=== PATIENT | male | born 1950 | race Caucasian/White ===

== ENCOUNTER 2018-07-28 16:30 | Emergency (ER) | payer BC ==
[2018-07-28] MEDS ORDERED: Sodium Chloride 0.9% 10 ML Syringe FLUSH PRN (17:07)
[2018-07-28] MEDS ORDERED: cefTRIAXone 2 GM Vial IV ONE (17:17)
--- NOTE | 2018-07-28 18:16 | EDM.PDOC ---
ED HPI GENERAL MEDICAL PROBLEM - General Chief Complaint: Lower Extremity Injury/Pain Stated Complaint: KNEE PAIN Time Seen by Provider: 07/28/18 16:51 Source of Information: Reports: Patient, RN Notes Reviewed - History of Present Illness INITIAL COMMENTS - FREE TEXT/NARRATIVE: 67-year-old male comes in with left knee pain. He states this started about 4-5 days ago. He was seen at a [place] ED 4 days ago and diagnosed with gout. At that time did show normal white blood count but did show an elevated uric acid. He has been taking occasional ibuprofen, was not started on any other formal treatment. He states the knee has not gotten better, the pain today may be somewhat worse. His been erythema over the anterior knee for the past 3 or 4 days. He has had no fever or chills. No known injury to the knee. He eats that he did have a biopsy of his right index finger at a dermatology clinic about a week ago. He states they're actually was "pus" that came out from the biopsy sites when that was done. He states the dermatology clinic has called him and actually the major finding was fungal infection /inflammation of his finger and hand. He has no other open wounds or sores. He's never had gout previously in his life. Left Knee Pain Score (Numeric/FACES): 2 - Related Data Allergies Allergy/AdvReac Type Severity Reaction Status Date / Time IV Contrast Allergy Rash Uncoded 07/28/18 16:47 Home Meds: Home Meds Clopidogrel [Plavix] 1 tab PO DAILY 07/24/18 [History] Lisinopril 10 mg PO DAILY 07/24/18 [History] atorvaSTATin [Lipitor] 80 mg PO DAILY 07/24/18 [History] Aspirin [Adult Low Dose Aspirin EC] 81 mg PO DAILY 07/28/18 [History] Cephalexin [Keflex] 500 mg PO QID #40 capsule 07/28/18 [Rx] Doxycycline [Vibramycin] 100 mg PO BID #20 tab 07/28/18 [Rx] Metoprolol Succinate [Toprol XL] 25 mg PO DAILY 07/28/18 [History] Past Medical History Cardiovascular History: Reports: High Cholesterol, Hypertension Gastrointestinal History: Reports: Diverticulosis - Past Surgical History Cardiovascular Surgical History: Reports: Carotid Stents GI Surgical History: Reports: Other (See Below) Other GI Surgeries/Procedures: colon resection Social & Family History - Tobacco Use Smoking Status *Q: Never Smoker Second Hand Smoke Exposure: No - Caffeine Use Caffeine Use: Reports: Coffee - Recreational Drug Use Recreational Drug Use: No Review of Systems - Review of Systems Review Of Systems: See Below Constitutional: Denies: Chills (Occasional mild), Fever Mouth/Throat: Reports: No Symptoms Respiratory: Denies: Shortness of Breath Cardiovascular: Denies: Chest Pain Musculoskeletal: Reports: Joint Pain (He does have pain with motion of the left knee primarily anterior aspect of the). Denies: Joint Swelling Skin: Reports: Erythema (Anterior aspect left knee) ED EXAM, GENERAL - Physical Exam Exam: See Below Head: Atraumatic. No: Facial Swelling Neck: Supple Respiratory/Chest: No Respiratory Distress, Lungs Clear Cardiovascular: Regular Rate, Rhythm Extremities: Redness (There is moderate erythema, very mild warmth over the anterior aspect of the left knee. The remainder of knee is without warmth or erythema), Other (Mild pain with flexion and extension but the pain is limited to the anterior aspect of his knee). No: Joint Swelling (The knee joint is not swollen, there is no visible or palpable effusion) Neurological: Alert, Oriented, No Motor/Sensory Deficits Skin Exam: Warm, Dry, Other (No other skin lesions, quite extensive hand dermatitis both hands.) Course - Vital Signs Last Recorded V/S: Last Vital Signs Temp 98.8 F 07/28/18 16:39 Pulse 76 07/28/18 16:39 Resp 16 07/28/18 16:39 BP 154/83 H 07/28/18 16:39 Pulse Ox 96 07/28/18 16:39 - Orders/Labs/Meds Orders: Active Orders 24 hr Category Date Time Status Peripheral IV Care [RC] . DIRECTED Care 07/28/18 17:07 Active Sodium Chloride 0.9% [Saline Flush] Med 07/28/18 17:07 Active 10 ml FLUSH ASDIRECTED PRN Peripheral IV Insertion Adult [OM.PC] Stat Oth 07/28/18 17:07 Ordered Medication Orders Sodium Chloride (Saline Flush) 10 ml FLUSH ASDIRECTED PRN PRN Reason: Keep Vein Open Last Admin: 07/28/18 17:15 Dose: 10 ml Labs: Laboratory Tests 07/28/18 Range/Units 17:07 WBC 8.71 (4.23-9.07) K/mm3 RBC 5.13 (4.63-6.08) M/mm3 Hgb 15.8 (13.7-17.5) gm/L Hct 47.5 (40.1-51.0) % MCV 92.6 H (79.0-92.2) fl MCH 30.8 (25.7-32.2) pg MCHC 33.3 (32.2-35.5) g/dl RDW Std Deviation 42.4 (35.1-43.9) fL Plt Count 209 (163-337) K/mm3 MPV 10.2 (9.4-12.3) fl Neut % (Auto) 60.3 (34.0-67.9) % Lymph % (Auto) 25.9 (21.8-53.1) % [place] % (Auto) 11.5 (5.3-12.2) % Eos % (Auto) 1.5 (0.8-7.0) Baso % (Auto) 0.3 (0.1-1.2) % Neut # (Auto) 5.25 (1.78-5.38) K/mm3 Lymph # (Auto) 2.26 (1.32-3.57) K/mm3 [place] # (Auto) 1.00 H (0.30-0.82) K/mm3 Eos # (Auto) 0.13 (0.04-0.54) K/mm3 Baso # (Auto) 0.03 (0.01-0.08) K/mm3 Meds: Medications Generic Name Dose Route Start Last Admin Trade Name Freq PRN Reason Stop Dose Admin Sodium Chloride 10 ml 07/28/18 17:07 07/28/18 17:15 Saline Flush FLUSH 10 ml ASDIRECTED PRN Administration Keep Vein Open Discontinued Medications Generic Name Dose Route Start Last Admin Trade Name Freq PRN Reason Stop Dose Admin Ceftriaxone Sodium 2 gm 07/28/18 17:17 07/28/18 17:29 Rocephin IV 07/28/18 17:18 2 gm ONETIME ONE Administration - Re-Assessments/Exams Free Text/Narrative Re-Assessment/Exam: 07/28/18 18:17 White blood count is come back at 8700, 60 segs 26 lymphocytes. I do not see that the knee needs to be tapped at this time, clinically this is superfiscial cellulitits of the anterior knee. rocephin 2 grams IV has been ordered. Will plan to treat with dual antibiotic coverage, cephalexin and doxycyline. Discharge instr. as documented. Departure - Departure Time of Disposition: 18:33 Disposition: Home, Self-Care 01 Condition: Fair Clinical Impression: Cellulitis Qualifiers: Site of cellulitis: extremity Site of cellulitis of extremity: lower extremity Laterality: left Qualified Code(s): L03.116 - Cellulitis of left lower limb - Discharge Information Prescriptions: Cephalexin [Keflex] 500 mg PO QID #40 capsule Doxycycline [Vibramycin] 100 mg PO BID #20 tab Referrals: Radha Law PA-C [Primary Care Provider] - Forms: ED Department Discharge Additional Instructions: Rest and elevate leg and knee as much as possible until pain and erythema resolving, you have been given Rocephin 2 g IV while here in the ED today. Start cephalexin antibiotic this evening and take 500 mg 4 times daily for 10 days until gone, doxycycline also to be started this evening and take twice daily for 10 days or until gone. The prescriptions have been sent electronically to [facility]. Return to ED where you are at during your upcoming vacation if the swelling becomes more widespread involving the medial and lateral part severe knee as well as the top part that is currently affected or if you start running fever of more than 100.5 at last for more than an hour or 2. - My Orders Last 24 Hours: My Active Orders 07/28/18 17:07 Peripheral IV Care [RC] . DIRECTED Sodium Chloride 0.9% [Saline Flush] 10 ml FLUSH ASDIRECTED PRN Peripheral IV Insertion Adult [OM.PC] Stat - Assessment/Plan Last 24 Hours: My Active Orders 07/28/18 17:07 Peripheral IV Care [RC] . DIRECTED Sodium Chloride 0.9% [Saline Flush] 10 ml FLUSH ASDIRECTED PRN Peripheral IV Insertion Adult [OM.PC] Stat
== END 2018-07-28 18:48 | disposition home or self-care (01) ==
LOC: JD.ED 16:30
DX: L03.116 Cellulitis of left lower limb (principal); I10 Essential (primary) hypertension; Z79.82 Long term (current) use of aspirin; Z79.899 Other long term (current) drug therapy; Z91.041 Radiographic dye allergy status
CPT/HCPCS: 36415; 85025; 96374; 99283; J0696; 99284

== ENCOUNTER 2019-01-02 11:05 | Emergency (ER) | payer BC ==
--- NOTE | 2019-01-02 12:08 | EDM.PDOC ---
ED HPI GENERAL MEDICAL PROBLEM - General Chief Complaint: Syncope Stated Complaint: [facility] Time Seen by Provider: 01/02/19 11:09 Source of Information: Reports: Patient, EMS History Limitations: Reports: No Limitations - History of Present Illness INITIAL COMMENTS - FREE TEXT/NARRATIVE: The patient presents by [facility] for a syncopal episode. He had a blood draw done. He says they took many vials of blood. He got lightheaded and passed out. He says this has happened before. He did not feel right before he had the blood draw. He is getting worked up for some kidney issues. He is feeling better now. He did not want to come to the ER and he does not want any more blood drawn or an IV. He has no fever, chills, cough, congestion , runny nose, abdominal pain, nausea or vomiting. He had an AK before and he had stents before. Onset: Sudden Duration: Minutes: Severity: Moderate Improves with: Reports: None Worsens with: Reports: None Associated Symptoms: Reports: No Other Symptoms - Related Data Allergies Allergy/AdvReac Type Severity Reaction Status Date / Time IV Contrast Allergy Rash Uncoded 01/02/19 11:16 Home Meds: Home Meds Clopidogrel [Plavix] 75 tab PO DAILY 07/24/18 [History] Lisinopril 10 mg PO DAILY 07/24/18 [History] atorvaSTATin [Lipitor] 80 mg PO DAILY 07/24/18 [History] Metoprolol Succinate [Toprol XL] 25 mg PO DAILY 07/28/18 [History] Clobetasol Propionate [Temovate 0.05% Oint] 1 applic TOP ASDIRECTED 01/02/19 [ History] Past Medical History Cardiovascular History: Reports: High Cholesterol, Hypertension Gastrointestinal History: Reports: Diverticulosis - Past Surgical History Cardiovascular Surgical History: Reports: Carotid Stents GI Surgical History: Reports: Other (See Below) Other GI Surgeries/Procedures: colon resection Social & Family History - Tobacco Use Smoking Status *Q: Never Smoker - Caffeine Use Caffeine Use: Reports: None - Recreational Drug Use Recreational Drug Use: No ED ROS GENERAL - Review of Systems Review Of Systems: See Below Constitutional: Reports: No Symptoms HEENT: Reports: No Symptoms Respiratory: Reports: No Symptoms Cardiovascular: Reports: Syncope. Denies: Chest Pain Endocrine: Reports: No Symptoms GI/Abdominal: Reports: No Symptoms : Reports: No Symptoms Musculoskeletal: Reports: No Symptoms - Physical Exam Exam: See Below Exam Limited By: No Limitations General Appearance: Alert, No Apparent Distress Ears: Normal External Exam Nose: Normal Inspection Head Exam: Atraumatic, Normocephalic Neck: Normal Inspection Respiratory/Chest: No Respiratory Distress, Lungs Clear, Normal Breath Sounds Cardiovascular: Regular Rate, Rhythm, No Edema, No Murmur GI/Abdominal: Soft, Non-Tender, No Organomegaly, No Mass Neuro Exam (Abbreviated): Alert, Oriented, No Motor/Sensory Deficits EKG INTERPRETATION EKG Date: 01/02/19 Time: 11:28 Rhythm: NSR Rate (Beats/Min): 64 [place]: Normal P-Wave: Present QRS: Normal ST-T: Normal QT: Normal EKG Interpretation Comments: Q waves in the anterior leads Course - Vital Signs Last Recorded V/S: Last Vital Signs Temp 97.9 F 01/02/19 11:14 Pulse 67 01/02/19 11:14 Resp 16 01/02/19 11:14 BP 92/58 L 01/02/19 11:14 Pulse Ox 94 L 01/02/19 11:14 - Orders/Labs/Meds Orders: Active Orders 24 hr Category Date Time Status EKG Documentation Completion [RC] ASDIRECTED Care 01/02/19 11:14 Active EKG 12 Lead [EK] Stat Ther 01/02/19 11:14 Ordered - Re-Assessments/Exams Free Text/Narrative Re-Assessment/Exam: 01/02/19 12:09 The patient did not want any labs done or an IV. He just wanted to rest. He did agree to an EKG. I do not see any problems with the EKG. He feels better and his BP is better. It was 92 systolic when he came in and it is now 140 systolic. Departure - Departure Time of Disposition: 12:10 Disposition: Home, Self-Care 01 Condition: Good Clinical Impression: Syncope Qualifiers: Syncope type: vasovagal syncope Qualified Code(s): R55 - Syncope and collapse - Discharge Information *PRESCRIPTION DRUG MONITORING PROGRAM REVIEWED*: No *COPY OF PRESCRIPTION DRUG MONITORING REPORT IN PATIENT LEELA: No Additional Instructions: Go home and rest. Please return if you are worse. - My Orders Last 24 Hours: My Active Orders 01/02/19 11:14 EKG Documentation Completion [RC] ASDIRECTED EKG 12 Lead [EK] Stat - Assessment/Plan Last 24 Hours: My Active Orders 01/02/19 11:14 EKG Documentation Completion [RC] ASDIRECTED EKG 12 Lead [EK] Stat
== END 2019-01-02 12:26 | disposition home or self-care (01) ==
LOC: JD.ED 11:05
DX: R55 Syncope and collapse (principal); I10 Essential (primary) hypertension; E78.00 Pure hypercholesterolemia, unspecified; Z91.041 Radiographic dye allergy status; Z79.02 Long term (current) use of antithrombotics/antiplatelets; Z79.899 Other long term (current) drug therapy
CPT/HCPCS: 93005; 93010; 99283; 99284-25

== ENCOUNTER 2020-09-25 12:24 | Emergency (ER) | payer BC ==
[2020-09-25] MEDS ORDERED: HYDROmorphone 0.5 MG/0.5 ML Syringe IVPUSH ONE (12:51)
[2020-09-25] MEDS ORDERED: Metoclopramide 10 MG/2 ML SDV IVPUSH ONE (12:51)
[2020-09-25] MEDS ORDERED: Acetaminophen 325 MG Tab PO ONE (12:52)
[2020-09-25] MEDS ORDERED: Dextrose 5%-0.9% NaCl 1,000 ML IV SCH (13:00)
--- NOTE | 2020-09-25 13:00 | EDM.PDOC ---
ED HPI GENERAL MEDICAL PROBLEM - General Chief Complaint: General Stated Complaint: poss covid headache vomiting fever body aches Time Seen by Provider: 09/25/20 12:40 Source of Information: Reports: Patient History Limitations: Reports: No Limitations - History of Present Illness INITIAL COMMENTS - FREE TEXT/NARRATIVE: 70-year-old male presents to the ED for evaluation of generalized myalgia headache nausea and vomiting mild diarrhea mildly paroxysmal cough and loss of appetite. All signs and symptoms of COVID-19 illness. Patient started feeling unwell last , September 19. He was in [place] shortly after starting to feel unwell. He has not been able to keep down any of his medicines for the last 3 days. Feels lightheaded dizzy and weak. Intermittent diaphoresis and sweats with chills. He is a never smoker. He has had 1 myocardial infarction. He has had 3 stents placed in his heart to the first time in 1 last time which was 8 years ago. He remains on Plavix daily. Has hypertension. Onset: Gradual Onset Date: 09/19/20 Duration: Day(s):, Constant, Getting Worse Location: Reports: Chest (Complete loss of appetite with intermittent nausea vomiting and mild diarrhea but not for the last 2 days. Mild paroxysmal minimally productive cough without hemoptysis. Believes there might be a slight color to the sputum.), Generalized (Neurolyse myalgia with associated headache), Other Quality: Reports: Ache (And relies myalgia neck low back thighs) Severity: Moderate Improves with: Reports: None Worsens with: Reports: Movement Context: Reports: Other. Denies: Activity, Exercise, Lifting, Sick Contact, Trauma Associated Symptoms: Reports: Cough, cough w sputum (Wound sputum production whitish in color), Loss of Appetite, Malaise, Nausea/Vomiting, Shortness of Breath, Other (Did have diarrhea up until 2 days ago when he has had no further diarrhea.). Denies: Confusion (Continuous occurrence over a week ago.), Chest Pain Treatments [employer]: Reports: Other (see below) (He took Denise-Broad Top 2 days ago but nothing since for fever relief. Has not kept down any of his medications for the last 3 days.) - Related Data Allergies Allergy/AdvReac Type Severity Reaction Status Date / Time IV Contrast Allergy Rash Uncoded 09/25/20 12:45 Home Meds: Home Meds Clopidogrel [Plavix] 75 tab PO DAILY 07/24/18 [History] Lisinopril 10 mg PO DAILY 07/24/18 [History] RX: atorvaSTATin [Lipitor] 80 mg PO DAILY 07/24/18 [History] RX: Metoprolol Succinate [Toprol XL] 25 mg PO DAILY 07/28/18 [History] Clobetasol Propionate [Temovate 0.05% Oint] 1 applic TOP ASDIRECTED 01/02/19 [History] Ondansetron [Zofran] 4 mg BUCCAL Q6H PRN #8 tab 09/25/20 [Rx] RX: dexAMETHasone [Decadron] 6 mg PO BID #12 tablet 09/25/20 [Rx] Past Medical History Cardiovascular History: Reports: CAD, High Cholesterol, Hypertension, HI (Myocardial infarction with the first placement of stents.), Stents (2 stents were placed the first times many years ago and then 1 stent was placed 8 years ago) Other Cardiovascular History: 3 stents Gastrointestinal History: Reports: Diverticulosis Genitourinary History: Reports: Renal Disease - Past Surgical History Cardiovascular Surgical History: Reports: Carotid Stents GI Surgical History: Reports: Other (See Below) Other GI Surgeries/Procedures: colon resection Social & Family History - Tobacco Use Tobacco Use Status *Q: Never Tobacco User - Caffeine Use Caffeine Use: Reports: None - Recreational Drug Use Recreational Drug Use: No ED ROS GENERAL - Review of Systems Review Of Systems: See Below Constitutional: Reports: Fever, Chills, Malaise, Weakness, Fatigue, Decreased Appetite HEENT: Reports: Glasses Respiratory: Reports: Shortness of Breath, Cough, Sputum. Denies: Wheezing (Reading primarily), Pleuritic Chest Pain, Hemoptysis (Minimal sputum production he thinks is a slight yellow color to it.) Cardiovascular: Reports: Blood Pressure Problem, Dyspnea on Exertion, Lightheadedness. Denies: Chest Pain, Claudication, Edema, Orthopnea Endocrine: Reports: Fatigue GI/Abdominal: Reports: Anorexia, Diarrhea, Decreased Appetite, Nausea (Diarrhea up until 2 days ago.), Vomiting : Reports: Frequency, Other ([place] x2) Musculoskeletal: Reports: Back Pain, Joint Pain Skin: Reports: Bruising Neurological: Reports: Dizziness, Headache, Difficulty Walking (Due to weakness in his lower extremities), Weakness. Denies: Confusion, Syncope Psychiatric: Reports: No Symptoms Hematologic/Lymphatic: Reports: No Symptoms Immunologic: Reports: No Symptoms ED EXAM, GENERAL - Physical Exam Exam: See Below Exam Limited By: No Limitations General Appearance: Alert, WD/WN, Moderate Distress, Other (Is ill. Does feel very warm palpation although nurses recorded temperature is 36.6. Heart rate was 95. Respiratory was 20 with O2 sats of 95% room air BP 165 /110.) Eye Exam: Bilateral Eye: Normal Inspection (No blepharal pallor or scleral icterus.), PERRL Throat/Mouth: Normal Oropharynx (1 is dry and coated. Oropharynx is otherwise normal.), Other Head: Atraumatic, Normocephalic Neck: Normal Inspection, Supple, Non-Tender, Full Range of Motion. No: Lymphadenopathy (L), Lymphadenopathy (R) Respiratory/Chest: Lungs Clear, Normal Breath Sounds (Mild tachypnea.), No Accessory Muscle Use, Respiratory Distress. No: Crackles, Rales, Rhonchi, Wheezing Cardiovascular: Normal Peripheral Pulses, Regular Rate, Rhythm, No Edema, No Gallop, No Murmur, No Rub Peripheral Pulses: 2+: Carotid (L), Carotid (R), Posterior Tibial (L), Posterior Tibial (R), Dorsalis Pedis (L), Dorsalis Pedis (R) GI/Abdominal: Normal Bowel Sounds, Soft, Non-Tender, No Organomegaly, No Abnormal Bruit, No Mass Back Exam: Normal Inspection, Full Range of Motion. No: CVA Tenderness (L), CVA Tenderness (R) Extremities: Normal Inspection, Normal Range of Motion, Non-Tender, No Pedal Edema Neurological: Alert, Oriented, CN II-XII Intact, Normal Cognition Psychiatric: Normal Affect, Normal Mood Skin Exam: Warm, Dry, Intact, Normal Color, No Rash #1 Interpretation EKG Date: 09/25/20 Time: 13:47 Rhythm: NSR Rate (Beats/Min): 97 [place]: Normal P-Wave: Enlarged QRS: Other (There are Q waves in leads II, III and aVF less than 25% of the QRS complex and are likely insignificant. Give some consideration of possible old inferior wall myocardial infarction since he is got 3 coronary artery stents.) ST-T: Normal QT: Prolonged (Moderately prolonged) EKG Interpretation Comments: Abnormal ECG Course - Vital Signs Last Recorded V/S: Last Vital Signs Temp 36.5 C 09/25/20 16:27 Pulse 7 L 09/25/20 16:27 Resp 18 09/25/20 16:27 BP 142/74 H 09/25/20 16:27 Pulse Ox 93 L 09/25/20 16:27 - Orders/Labs/Meds Orders: Active Orders 24 hr Category Date Time Status EKG Documentation Completion [RC] STAT Care 09/25/20 12:53 Active Vital Signs [RC] Q15M Care 09/25/20 15:04 Active BLOOD CULTURE [MREF] Stat Lab 09/25/20 13:26 Received BLOOD CULTURE [MREF] Stat Lab 09/25/20 13:26 Received Dextrose 5%-0.9% NaCl [Dextrose 5%-Normal Saline] 1,000 Med 09/25/20 13:00 Active ml IV ASDIRECTED EPINEPHrine [Adrenalin] Med 09/25/20 15:03 Active 0.3 mg IM ONETIME PRN Famotidine [Pepcid] Med 09/25/20 15:03 Active 20 mg IVPUSH ONETIME PRN Sodium Chloride 0.9% [Saline Flush] Med 09/25/20 15:15 Active 30 ml FLUSH ASDIRECTED diphenhydrAMINE [Benadryl] Med 09/25/20 15:03 Active 50 mg IVPUSH ONETIME PRN methylPREDNISolone Sod Succ [Solu-MEDROL] Med 09/25/20 15:03 Active 125 mg IVPUSH ONETIME PRN Blood Culture x2 Reflex Set [OM.PC] Stat Oth 09/25/20 12:53 Ordered Medication Orders Diphenhydramine HCl (Diphenhydramine 50 Mg/Ml Sdv) 50 mg IVPUSH ONETIME PRN PRN Reason: hypersensitivity reaction Epinephrine HCl (Epinephrine 1 Mg/Ml Sdv) 0.3 mg IM ONETIME PRN PRN Reason: hypersensitivity reaction Famotidine (Famotidine 20 Mg/2 Ml Sdv) 20 mg IVPUSH ONETIME PRN PRN Reason: hypersensitivity reaction Dextrose/Sodium Chloride (Dextrose 5%-Normal Saline) 1,000 mls @ 500 mls/hr IV ASDIRECTED MARY Last Admin: 09/25/20 13:17 Dose: 500 mls/hr Documented by: MITCHELLTCON Methylprednisolone Sodium Succinate (Methylprednisolone Sodium Succinate 125 Mg/2 Ml Sdv) 125 mg IVPUSH ONETIME PRN PRN Reason: hypersensitivity reaction Sodium Chloride (Sodium Chloride 0.9% 10 Ml Syringe) 30 ml FLUSH ASDIRECTED [facility] Labs: Laboratory Tests 09/25/20 09/25/20 09/25/20 Range/Units 12:35 12:35 12:35 WBC 6.73 (4.23-9.07) K/mm3 RBC 5.58 (4.63-6.08) M/mm3 Hgb 17.5 D (13.7-17.5) gm/dl Hct 51.6 H (40.1-51.0) % MCV 92.5 H (79.0-92.2) fl MCH 31.4 (25.7-32.2) pg MCHC 33.9 (32.2-35.5) g/dl RDW Std Deviation 42.2 (35.1-43.9) fL Plt Count 148 L (163-337) K/mm3 MPV 10.9 (9.4-12.3) fl Neutrophils % (Manual) 62 H (40-60) % Band Neutrophils % 6 (0-10) % Lymphocytes % (Manual) 26 (20-40) % Atypical Lymphs % 0 % Monocytes % (Manual) 6 (2-10) % Eosinophils % (Manual) 0 L (0.8-7.0) % Basophils % (Manual) 0 L (0.2-1.2) Platelet Estimate Adequate RBC Morph Comment Normal PT (9.7-12.0) SECONDS INR APTT (21.7-31.4) SECONDS D-Dimer, Quantitative (0.19-0.50) mg/L Sodium 141 (136-145) mEq/L Potassium 4.1 (3.5-5.1) mEq/L Chloride 105 (98-107) mEq/L Carbon Dioxide 22 (21-32) mEq/L Anion Gap 18.1 H (5-15) BUN 25 H (7-18) mg/dL Creatinine 2.2 H (0.7-1.3) mg/dL Est Cr Clr Drug Dosing 33.18 mL/min Estimated GFR (MDRD) 30 (>60) mL/min BUN/Creatinine Ratio 11.4 L (14-18) Glucose 133 H (70-99) mg/dL Calcium 8.9 (8.5-10.1) mg/dL Magnesium 1.7 L (1.8-2.4) mg/dL Total Bilirubin 0.6 (0.2-1.0) mg/dL AST 23 (15-37) U/L ALT 54 (16-63) U/L Alkaline Phosphatase 133 H (46-116) U/L Lactate Dehydrogenase 239 H (85-227) U/L CK-MB (CK-2) 0.6 (0-3.6) ng/ml Troponin I < 0.017 (0.00-0.056) ng/mL C-Reactive Protein 2.4 H* (<1.0) mg/dL NT-Pro-B Natriuret Pep 290 H (0-125) pg/mL Total Protein 7.8 (6.4-8.2) g/dl Albumin 4.0 (3.4-5.0) g/dl Globulin 3.8 gm/dL Albumin/Globulin Ratio 1.1 (1-2) Urine Color (Yellow) Urine Appearance (Clear) Urine pH (5.0-8.0) Ur Specific [place] (1.005-1.030) Urine Protein (Negative) Urine Glucose (UA) (Negative) Urine Ketones (Negative) Urine Occult Blood (Negative) Urine Nitrite (Negative) Urine Bilirubin (Negative) Urine Urobilinogen (0.2-1.0) Ur Leukocyte Esterase (Negative) Urine RBC (0-5) /hpf Urine WBC (0-5) /hpf Ur Epithelial Cells (0-5) /hpf Urine Bacteria (FEW) /hpf Urine Mucus (FEW) /hpf SARS-CoV-2 RNA (JERALD) (NEGATIVE) 09/25/20 09/25/20 09/25/20 Range/Units 12:35 13:04 13:40 WBC (4.23-9.07) K/mm3 RBC (4.63-6.08) M/mm3 Hgb (13.7-17.5) gm/dl Hct (40.1-51.0) % MCV (79.0-92.2) fl MCH (25.7-32.2) pg MCHC (32.2-35.5) g/dl RDW Std Deviation (35.1-43.9) fL Plt Count (163-337) K/mm3 MPV (9.4-12.3) fl Neutrophils % (Manual) (40-60) % Band Neutrophils % (0-10) % Lymphocytes % (Manual) (20-40) % Atypical Lymphs % % Monocytes % (Manual) (2-10) % Eosinophils % (Manual) (0.8-7.0) % Basophils % (Manual) (0.2-1.2) Platelet Estimate RBC Morph Comment PT 10.9 (9.7-12.0) SECONDS INR 1.02 APTT 28.8 (21.7-31.4) SECONDS D-Dimer, Quantitative < 0.19 L (0.19-0.50) mg/L Sodium (136-145) mEq/L Potassium (3.5-5.1) mEq/L Chloride (98-107) mEq/L Carbon Dioxide (21-32) mEq/L Anion Gap (5-15) BUN (7-18) mg/dL Creatinine (0.7-1.3) mg/dL Est Cr Clr Drug Dosing mL/min Estimated GFR (MDRD) (>60) mL/min BUN/Creatinine Ratio (14-18) Glucose (70-99) mg/dL Calcium (8.5-10.1) mg/dL Magnesium (1.8-2.4) mg/dL Total Bilirubin (0.2-1.0) mg/dL AST (15-37) U/L ALT (16-63) U/L Alkaline Phosphatase (46-116) U/L Lactate Dehydrogenase (85-227) U/L CK-MB (CK-2) (0-3.6) ng/ml Troponin I (0.00-0.056) ng/mL C-Reactive Protein (<1.0) mg/dL NT-Pro-B Natriuret Pep (0-125) pg/mL Total Protein (6.4-8.2) g/dl Albumin (3.4-5.0) g/dl Globulin gm/dL Albumin/Globulin Ratio (1-2) Urine Color Yellow (Yellow) Urine Appearance Clear (Clear) Urine pH 6.0 (5.0-8.0) Ur Specific [place] > or = 1.030 (1.005-1.030) Urine Protein 3+ H (Negative) Urine Glucose (UA) Negative (Negative) Urine Ketones Negative (Negative) Urine Occult Blood Trace-intact H (Negative) Urine Nitrite Negative (Negative) Urine Bilirubin Negative (Negative) Urine Urobilinogen 0.2 (0.2-1.0) Ur Leukocyte Esterase Negative (Negative) Urine RBC Not seen (0-5) /hpf Urine WBC 0-5 (0-5) /hpf Ur Epithelial Cells Not seen (0-5) /hpf Urine Bacteria Not seen (FEW) /hpf Urine Mucus Not seen (FEW) /hpf SARS-CoV-2 RNA (JERALD) Positive H (NEGATIVE) Meds: Medications Generic Name Dose Route Start Last Admin Trade Name Freq PRN Reason Stop Dose Admin Diphenhydramine HCl 50 mg 09/25/20 15:03 Diphenhydramine 50 Mg/Ml Sdv IVPUSH ONETIME PRN hypersensitivity reaction Epinephrine HCl 0.3 mg 09/25/20 15:03 Epinephrine 1 Mg/Ml Sdv IM ONETIME PRN hypersensitivity reaction Famotidine 20 mg 09/25/20 15:03 Famotidine 20 Mg/2 Ml Sdv IVPUSH ONETIME PRN hypersensitivity reaction Dextrose/Sodium Chloride 1,000 mls @ 500 mls/hr 09/25/20 13:00 09/25/20 13:17 Dextrose 5%-Normal Saline IV 500 mls/hr ASDIRECTED MARY Administration Methylprednisolone Sodium Succinate 125 mg 09/25/20 15:03 Methylprednisolone Sodium Succinate 125 Mg/2 Ml Sdv IVPUSH ONETIME PRN hypersensitivity reaction Sodium Chloride 30 ml 09/25/20 15:15 Sodium Chloride 0.9% 10 Ml Syringe FLUSH ASDIRECTED MARY Discontinued Medications Generic Name Dose Route Start Last Admin Trade Name Freq PRN Reason Stop Dose Admin Acetaminophen 975 mg 09/25/20 12:52 09/25/20 13:13 Acetaminophen 325 Mg Tab PO 09/25/20 12:53 975 mg ONETIME ONE Administration Dexamethasone 6 mg 09/25/20 15:04 09/25/20 15:19 Dexamethasone 10 Mg/Ml Sdv IVPUSH 09/25/20 15:05 6 mg ONETIME ONE Administration Hydromorphone HCl 0.5 mg 09/25/20 12:51 09/25/20 13:16 Hydromorphone 0.5 Mg/0.5 Ml Syringe IVPUSH 09/25/20 12:52 0.5 mg ONETIME ONE Administration CASIRIVIMAB/IMDEVIMAB 10 ml/ 110 mls @ 220 mls/hr 09/25/20 15:03 09/25/20 15:43 Sodium Chloride IV 09/25/20 15:32 220 mls/hr ONETIME ONE Administration Metoclopramide HCl 10 mg 09/25/20 12:51 09/25/20 13:14 Metoclopramide 10 Mg/2 Ml Sdv IVPUSH 09/25/20 12:52 10 mg ONETIME ONE Administration - Radiology Interpretation Free Text/Narrative:: 70-year-old male presents to the ED for evaluation of generalized myalgia headache intermittent fever and chills associate with a paroxysmal minimally productive cough. A complete loss of appetite with nausea and vomiting and some diarrhea 2 days ago but nothing since. Clinically has all the signs and symptoms of COVID-19 illness. He recently traveled to [place]. Started to feel ill last , September 19 and has continued to feel unwell since. He has not received his COVID-19 vaccination. - Re-Assessments/Exams Free Text/Narrative Re-Assessment/Exam: 09/25/20 14:00 White count is 6.73 with differential pending. Hemoglobin is elevated at 17.5 with hematocrit of 51.6 indicating a degree of hemoconcentration. Platelet count low normal at 148,000. PT is 10.9 with an INR of 1.02 and a PTT of 28.8. D-dimer is less than 0.19. Sodium 141 with a potassium of 4.1. Chloride 105 with a bicarb of 22. Anion gap is elevated at 18.1. BUN is 25 with a creatinine elevated at 2.2 and a GFR of 30 i.e. stage IIIb renal insufficiency. Glucose is 133 calcium 8.9 magnesium slightly low at 1.7. Liver function is normal other than slightly elevated alkaline phosphatase at 133. LDH is elevated at 239. CK-MB fraction is 0.6 with a troponin I of less than 0.017 C-reactive protein 2.4 BNP slightly elevated at 290 total protein is 7.8 with an albumin fraction of 4.0 urinalysis shows 3+ proteinuria and trace of occult blood. Leukocyte Estrace is negative. Micro is pending 09/25/20 14:00 chest x-ray reveals prominence of the pulmonary arteries. There is no definitive pulmonary infiltrate and cardiac silhouette is normal as is the mediastinum. Slight degenerative changes are appreciated scattered within the spine. Blood pressure is come down to 142/92. 09/25/20 14:29 she reports nausea is improved. He wants to try some Pedialyte or dilute Gatorade and this will certainly will be offered to him. 09/25/20 15:03 COVID-19 screen is negative. Urinalysis showed 3+ proteinuria and trace of occult blood but no signs of infection. BNP is 290. C-reactive protein was 2.4 he is a candidate for Regeneron. Infusion and he is excepted this form of medication intravenously. Blood pressure is currently 142/82. He will be given a dose of dexamethasone 6 mg IV as well while he is in the department.Differential on the white count came back at 62% neutrophils and 6% bands cells. 09/25/20 16:39 patient completed Regeneron transfusion about 40 minutes ago and is feeling markedly improved primarily I believe from a IV fluid replacement therapy and control of fever. He will be discharged home with a pulse oximeter from the emergency department. He will return if his levels stay below 90 and 88%. Dexamethasone will be used 6 mg twice daily for 6 days. Departure - Departure Time of Disposition: 16:39 Disposition: Home, Self-Care 01 Condition: Fair Clinical Impression: COVID-19 determined by clinical diagnostic criteria - Discharge Information *PRESCRIPTION DRUG MONITORING PROGRAM REVIEWED*: Not Applicable *COPY OF PRESCRIPTION DRUG MONITORING REPORT IN PATIENT LEELA: Not Applicable Prescriptions: RX: dexAMETHasone [Decadron] 6 mg PO BID #12 tablet Ondansetron [Zofran] 4 mg BUCCAL Q6H PRN #8 tab PRN Reason: nausea or vomiting Instructions: COVID-19 Frequently Asked Questions, COVID-19 Vaccine Information, COVID-19: How to Protect Yourself and Others - CDC, COVID-19: Quarantine vs. Isolation - CDC, Prevent the Spread of COVID-19 if You Are Sick - CDC Referrals: Radha Law PA-C [Primary Care Provider] - Forms: ED Department Discharge Additional Instructions: Evaluation in the emergency room today in regards to diagnosis of COVID-19 illness. Your oxygen levels are staying 92 to 94% on room air but will go down with walking and on exertion. Your chest x-ray was negative for any signs of Covid or viral pneumonia. You were treated with a liter of IV fluids for dehydration identified in your lab work. You were a candidate for monoclonal antibody therapy and you received a combination of Regeneron and another antiviral medication to provide immediate antibodies against the COVID-19 illness in the hopes of being able to keep you out of the hospital. You were also started on dexamethasone or steroid 6 mg was given intravenously while in the emergency room. You should take a second dose in the form of the tablet at bedtime tonight with little food in your stomach. Then it is to be taken twice daily for another 5-1/2 days with breakfast and supper. I have also written a prescription for nausea may use Zofran 4 mg under the tongue every 4-6 hours as necessary for relief of nausea so that she can keep down fluids and eat a little bit. Appetite will improve with the steroids. You will need to continue Tylenol 650 mg every 4 hours as necessary for relief of fever and/or chills and body aches and headaches. Because you are on Plavix you cannot use Motrin or Aleve as they have a high propensity to cause you to bleed. You would need to return to the emergency room if you start to feel more short of breath. Ideally you should use your pulse oximeter least 4 times daily . As long as you are oxygen level stays above 88 you are doing okay. The worst part of the illness is day 8-11 which is currently where you are at we believe day 8. You need to quarantine for another 5 days to prevent spread of the virus to others particularly family members. You should consider vaccination in approximately 3 months time. Follow- up with personal physician anytime after 7 days from now if any other problems occur. Sepsis Event Note (ED) - Evaluation Sepsis Screening Result: No Definite Risk - Focused Exam Vital Signs: Vital Signs Temp Pulse Resp BP Pulse Ox 09/25/20 16:27 36.5 C 7 L 18 142/74 H 93 L 09/25/20 16:16 66 18 148/80 H 91 L 09/25/20 16:04 80 18 149/82 H 94 L 09/25/20 15:49 78 18 148/82 H 95 09/25/20 15:34 75 18 150/81 H 94 L 09/25/20 15:19 85 18 146/80 H 93 L 09/25/20 15:04 36.4 C 95 18 142/82 H 92 L 09/25/20 12:39 36.6 C 95 20 165/110 H 95 - My Orders Last 24 Hours: My Active Orders 09/25/20 12:53 EKG Documentation Completion [RC] STAT Blood Culture x2 Reflex Set [OM.PC] Stat 09/25/20 13:00 Dextrose 5%-0.9% NaCl [Dextrose 5%-Normal Saline] 1,000 ml IV ASDIRECTED 09/25/20 13:26 BLOOD CULTURE [MREF] Stat BLOOD CULTURE [MREF] Stat 09/25/20 15:03 EPINEPHrine [Adrenalin] 0.3 mg IM ONETIME PRN Famotidine [Pepcid] 20 mg IVPUSH ONETIME PRN diphenhydrAMINE [Benadryl] 50 mg IVPUSH ONETIME PRN methylPREDNISolone Sod Succ [Solu-MEDROL] 125 mg IVPUSH ONETIME PRN 09/25/20 15:04 Vital Signs [RC] Q15M 09/25/20 15:15 Sodium Chloride 0.9% [Saline Flush] 30 ml FLUSH ASDIRECTED - Assessment/Plan Last 24 Hours: My Active Orders 09/25/20 12:53 EKG Documentation Completion [RC] STAT Blood Culture x2 Reflex Set [OM.PC] Stat 09/25/20 13:00 Dextrose 5%-0.9% NaCl [Dextrose 5%-Normal Saline] 1,000 ml IV ASDIRECTED 09/25/20 13:26 BLOOD CULTURE [MREF] Stat BLOOD CULTURE [MREF] Stat 09/25/20 15:03 EPINEPHrine [Adrenalin] 0.3 mg IM ONETIME PRN Famotidine [Pepcid] 20 mg IVPUSH ONETIME PRN diphenhydrAMINE [Benadryl] 50 mg IVPUSH ONETIME PRN methylPREDNISolone Sod Succ [Solu-MEDROL] 125 mg IVPUSH ONETIME PRN 09/25/20 15:04 Vital Signs [RC] Q15M 09/25/20 15:15 Sodium Chloride 0.9% [Saline Flush] 30 ml FLUSH ASDIRECTED
--- NOTE | 2020-09-25 13:54 | CR ---
Chest: Portable view of the chest was obtained. Comparison: No prior chest x-rays available. Heart size and mediastinum are within normal limits. Lungs are clear with no acute parenchymal change. Slight degenerative change is scattered within the spine. Impression: 1. Nothing acute is seen on portable chest x-ray. Diagnostic code #1
[2020-09-25] MEDS ORDERED: Famotidine 20 MG/2 ML SDV IVPUSH PRN (15:03)
[2020-09-25] MEDS ORDERED: methylPREDNISolone Sodium Succinate 125 MG/2 ML SDV IVPUSH PRN (15:03)
[2020-09-25] MEDS ORDERED: EPINEPHrine 1 MG/ML SDV IM PRN (15:03)
[2020-09-25] MEDS ORDERED: diphenhydrAMINE 50 MG/ML SDV IVPUSH PRN (15:03)
[2020-09-25] MEDS ORDERED: Dexamethasone 10 MG/ML SDV IVPUSH ONE (15:04)
[2020-09-25] MEDS ORDERED: Sodium Chloride 0.9% 10 ML Syringe FLUSH SCH (15:15)
== END 2020-09-25 16:45 | disposition home or self-care (01) ==
LOC: JD.ED 12:24
DX: U07.1 COVID-19 (principal); I25.10 Atherosclerotic heart disease of native coronary artery without angina pectoris; E78.00 Pure hypercholesterolemia, unspecified; I10 Essential (primary) hypertension; I25.2 Old myocardial infarction; R94.31 Abnormal electrocardiogram [ECG] [EKG]; Z91.041 Radiographic dye allergy status; Z79.02 Long term (current) use of antithrombotics/antiplatelets; Z79.899 Other long term (current) drug therapy
CPT/HCPCS: 36415; 71045; 80053; 81001; 82553; 83615; 83735; 83880; 84484; 85007; 85027; 85379; 85610; 85730; 86140; 87040; 87635; 93005; 96374; 96375; 99284; A9270; J1100; J1170; J2765; J7042; M0243; Q0243; 93010; U0002

== ENCOUNTER 2021-08-04 16:33 | Emergency (ER) | payer BC | END 2021-08-04 17:10 | disposition home or self-care (01) | LOC: JD.ED 16:33 | DX: M25.562 Pain in left knee (principal); I25.10 Atherosclerotic heart disease of native coronary artery without angina pectoris; I25.2 Old myocardial infarction; E78.00 Pure hypercholesterolemia, unspecified; I10 Essential (primary) hypertension; Z79.899 Other long term (current) drug therapy; Z91.041 Radiographic dye allergy status | CPT/HCPCS: 36415; 73562-26-LT; 73562-LT; 80053; 84550; 85025; 85379; 86140; 99283-25; 99284 ==

== ENCOUNTER 2022-04-08 09:37 | Emergency (ER) | payer BC, OTHER ==
[2022-04-08 11:19] LABS: CORONAVIRUS COVID-19 NAA NEGATIVE (NEGATIVE)
== END 2022-04-08 15:30 | disposition home or self-care (01) ==
LOC: JD.ED 09:37
DX: I20.0 Unstable angina (principal); I25.10 Atherosclerotic heart disease of native coronary artery without angina pectoris; E78.00 Pure hypercholesterolemia, unspecified; I10 Essential (primary) hypertension; I25.2 Old myocardial infarction; Z91.041 Radiographic dye allergy status; Z79.899 Other long term (current) drug therapy; Z20.822 Contact with and (suspected) exposure to COVID-19
CPT/HCPCS: 0241U; 36415; 71045; 80053; 80061; 83690; 83735; 84484; 85025; 93005; 99285; 93010; 99283